=== PATIENT | female | born 2000 | race Caucasian/White ===

== ENCOUNTER 2019-08-10 17:24 | Emergency (ER) | payer OTHER ==
[2019-08-10 17:46] LABS: Rapid Strep Molecular Negative (Negative)
[2019-08-10] MEDS ORDERED: Dexamethasone TAB* 4 MG PO ONE (20:06)
[2019-08-10] MEDS ORDERED: Lidocaine 2% VISCOUS* 15 ML UDC PO ONE (20:07)
[2019-08-10] MEDS ORDERED: Al Hydrox/Mg Hydrox/Simet LIQ* 30 ML UDC PO ONE (20:07)
--- NOTE | 2019-08-10 20:26 | ED ---
Throat Pain/Nasal Congestion - HPI Summary HPI Summary: 19-year-old female presents with sore throat for the past 3 days. States that her throat feels very swollen and it makes her feel short of breath at times. She admits to postnasal drip. No fevers. She admits to acid reflux. No abdominal pain. No nausea or vomiting. Does have a history of strep but no history mono. Denies any fatigue. Has no medical conditions. Is able to swallow. - History of Current Complaint Chief Complaint: EDThroatPain Time Seen by Provider: 08/10/19 19:48 - Allergies/Home Medications Allergies/Adverse Reactions: Allergies Allergy/AdvReac Type Severity Reaction Status Date / Time aspirin Allergy Rash Verified 08/10/19 17:28 gluten Allergy GI Upset Verified 08/10/19 17:28 Penicillins Allergy Rash Verified 08/10/19 17:28 PMH/Surg Hx/FS Hx/Imm Hx Endocrine/Hematology History: Denies: Hx Anticoagulant Therapy Respiratory History: Denies: Hx Asthma Infectious Disease History: No Infectious Disease History: Denies: Traveled Outside the [place] in Last 30 Days - Family History Known Family History: Positive: Non-Contributory - Social History Alcohol Use: Occasionally Substance Use Type: Reports: None Smoking Status (MU): Never Smoked Tobacco Review of Systems Negative: Fever Positive: Sore Throat, Nasal Discharge Negative: Chest Pain Positive: Shortness Of Breath. Negative: Cough All Other Systems Reviewed And Are Negative: Yes Physical Exam Triage Information Reviewed: Yes Vital Signs On Initial Exam: Initial Vitals Temp Pulse Resp BP Pulse Ox 96.1 F 89 18 152/98 98 08/10/19 17:26 08/10/19 17:26 08/10/19 17:26 08/10/19 17:26 08/10/19 17:26 Vital Signs Reviewed: Yes Appearance: Positive: Well-Appearing Skin: Positive: Warm, Dry Head/Face: Positive: Normal Head/Face Inspection Eyes: Positive: Normal, EOMI, GABRIEL, Conjunctiva Clear ENT: Positive: Pharyngeal erythema, TMs normal, Uvula midline, Other - soft palate symmetric. Negative: Trismus, Muffled voice Neck: Positive: Supple, Tenderness @ - posterior cervical Respiratory/Lung Sounds: Positive: Clear to Auscultation, Breath Sounds Present Cardiovascular: Positive: Normal, RRR Musculoskeletal: Positive: Normal Neurological: Positive: Normal Psychiatric: Positive: Normal Procedures - Sedation Patient Received Moderate/Deep Sedation with Procedure: No Diagnostics - Vital Signs Vital Signs Temp Pulse Resp BP Pulse Ox 08/10/19 17:26 96.1 F 89 18 152/98 98 - Laboratory Lab Results: Lab Results 08/10/19 08/10/19 Range/Units 17:32 20:12 Monoscreen Pending Group A Strep Rapid Negative (Negative) Lab Statement: Any lab studies that have been ordered have been reviewed, and results considered in the medical decision making process. EENT Course/Dx - Course Course Of Treatment: 19-year-old female presents with sore throat for the past 3 days. States that her throat feels very swollen and it makes her feel short of breath at times. She admits to postnasal drip. No fevers. She admits to acid reflux. No abdominal pain. No nausea or vomiting. Does have a history of strep but no history mono. Denies any fatigue. Has no medical conditions. Is able to swallow. On exam pharynx erythematous. Uvula midline. Soft palate symmetric. Strep is negative. We'll prescribe Decadron Magic mouthwash. Patient understands and agrees with plan. - Differential Diagnoses Differential Diagnoses: Pharyngitis, Tonsilitis, URI/Bronchitis - Diagnoses Provider Diagnoses: Pharyngitis Discharge ED - Sign-Out/Discharge Documenting (check all that apply): Patient Departure - Discharge Plan Condition: Good Disposition: HOME Prescriptions: Dexamethasone TAB* [Decadron TAB*] 4 mg PO DAILY #4 tab Magic Mouth Was-MAL/MAAL/LIDO* 5 ml SWISH SPIT QID #100 ml Patient Education Materials: Pharyngitis (ED) Referrals: [facility] - Tushar GAMBLE [Primary Care Provider] - Additional Instructions: Magic mouthwash 5ml swish and spit can use 4x a day Take steroid once a day for 4 days Take Tylenol or ibuprofen for pain every 6 hours Use saline spray in nose as much as needed for nasal congestion Can gargle salt water Can use cough drops or products such as cloraseptic spray Return to ED if develop any new or worsening symptoms - Billing Disposition and Condition Condition: GOOD Disposition: Home
[2019-08-10 20:58] VITALS: BP 136/79
[2019-08-12 15:29] LABS: EBV Capsid Ag IgG Ab Positive (Negative); EBV Capsid Ag IgM Ab Negative (Negative); Epstein-Barr Nuclear Antigen Positive (Negative)
--- NOTE | 2019-08-13 08:44 | ED ---
Imaging and Labs Follow Up Follow Up Type: Labs/Cultures Labs/Culture Result: Monospot negative. IgG positive, IgM negative. Patient Communication/Plan: Positive IgG and negative IgM suspect prior exposure without acute infection. No change in treatment needed at this time. Provider Diagnoses: Pharyngitis
== END 2019-08-10 20:55 | disposition home or self-care (01) ==
LOC: ED 17:24
DX: J02.9 Acute pharyngitis, unspecified (principal); Z88.6 Allergy status to analgesic agent; Z88.0 Allergy status to penicillin
CPT/HCPCS: 36415; 86308; 86664; 86665; 87651; 99282; A9270-GY; J8540

== ENCOUNTER 2019-08-15 15:38 | Emergency (ER) | payer OTHER ==
[2019-08-15 16:01] VITALS: BP 104/63
--- NOTE | 2019-08-15 16:58 | UC ---
Respiratory Complaint HPI - HPI Summary HPI Summary: PATIENT HAS HAD A SENSATION OF THROAT TIGHTNESS FOR THE PAST WEEK OR SO. MILD COUGH. NO TRUE SORE THROAT. NO FEVER NO NAUSEA/VOMITING. WAS GIVEN 4 MG DEXAMETHASONE ONCE DAILY FOR 4 DAYS WHICH SHE COMPLETED YESTERDAY. STATES IT DID NOT HELP. WENT BACK TO [facility] YESTERDAY AND RECEIVED PRESCRIPTION FOR KEFLEX 500 MG TWICE DAILY FOR 5 DAYS. STATES THAT HER THROAT WILL TIGHTEN UP TO THE POINT WHERE SHE FEELS IT IS HARD TO BREATHE. EATING AND DRINKING WITHOUT DIFFICULTY. ALBUTEROL INHALER NOT HELPING. - History of Current Complaint Chief Complaint: UCRespiratory Stated Complaint: THROAT PAIN Time Seen by Provider: 08/15/19 16:21 Hx Obtained From: Patient Hx Last Menstrual Period: 06/11/19 Onset/Duration: Gradual Onset, Lasting Days, Still Present Timing: Constant Severity Initially: Moderate Severity Currently: Moderate Pain Intensity: 6 Pain Scale Used: 0-10 Numeric Character: Cough: Nonproductive Aggravating Factors: Nothing Alleviating Factors: Nothing Associated Signs And Symptoms: Positive: URI. Negative: Fever, Wheezing, Nasal Congestion - Allergies/Home Medications Allergies/Adverse Reactions: Allergies Allergy/AdvReac Type Severity Reaction Status Date / Time aspirin Allergy Rash Verified 08/15/19 16:01 gluten Allergy GI Upset Verified 08/15/19 16:01 Penicillins Allergy Rash Verified 08/15/19 16:01 Home Medications: Home Medications Cephalexin CAP* [Keflex 500 CAP*] 500 mg PO BID 08/15/19 [History Confirmed 02/26] PMH/Surg Hx/FS Hx/Imm Hx Previously Healthy: Yes Other History Of: Negative For: Anticoagulant Therapy - Surgical History Surgical History: None - Family History Known Family History: Positive: Non-Contributory - Social History Alcohol Use: Occasionally Substance Use Type: None Smoking Status (MU): Never Smoked Tobacco Review of Systems All Other Systems Reviewed And Are Negative: Yes Constitutional: Positive: Negative ENT: Positive: Negative Respiratory: Positive: Shortness Of Breath, Cough Cardiovascular: Positive: Negative Gastrointestinal: Positive: Negative Physical Exam Triage Information Reviewed: Yes Appearance: Well-Appearing, No Pain Distress, Well-Nourished Vital Signs: Initial Vital Signs Temp 97.9 F 08/15/19 15:56 Pulse 67 08/15/19 15:56 Resp 18 11/05/19 15:56 BP 104/63 08/15/19 15:56 Pulse Ox 99 08/15/19 15:56 Vital Signs Reviewed: Yes Eyes: Positive: Conjunctiva Clear ENT: Positive: Hearing grossly normal, Pharynx normal, TMs normal, Uvula midline - NO EDEMA. Negative: Pharyngeal erythema, Tonsillar swelling, Trismus , Muffled voice Neck: Positive: Supple, Nontender, No Lymphadenopathy Respiratory Exam: Normal Cardiovascular Exam: Normal Abdomen Description: Positive: Soft Musculoskeletal: Positive: No Edema Neurological: Positive: Alert Psychological: Positive: Age Appropriate Behavior Skin: Negative: Rashes Diagnostics - Radiology CXR Radiology Interpretation Completed By: Radiologist Summary of Radiographic Findings: NO ACUTE CARDIOPULMONARY PROCESS BY RADIOGRAPH. Re-Evaluation - Re-Evaluation First Eval Re-Evaluation Time: 17:40 - NO CHANGE IN SX AFTER ALBUTEROL NEB Change: Unchanged Respiratory Course/Dx - Course Course Of Treatment: PATIENT STATES THAT HER THROAT FEELS TIGHT EVEN SHE IS SITTING IN THE ENCOUNTER HOWEVER SHE APPEARS TO BE BREATHING EASILY AND SPEAKING IN FULL SENTENCES. EXAN UNREMARKABLE. O2 SAT 99%. NORMAL LUNG SOUNDS. STREP NEGATIVE. CXR UNREMARKABLE. NO CHANGE AFTER ALBUTEROL NEB. ADVISED SHE LIKELY HAS A VIRAL INFECTION WITH SOME UNDERLYING ANXIETY THAT SHOULD IMPROVE WITH TIME, HOWEVER ADVISED TO GO TO THE ED WITHOUT FAIL IF HER SX WORSEN OR DO NOT IMPROVE. - Differential Dx/Diagnosis Provider Diagnosis: Upper respiratory infection Discharge ED - Sign-Out/Discharge Documenting (check all that apply): Patient Departure All imaging exams completed and their final reports reviewed: Yes - Discharge Plan Condition: Stable Disposition: HOME Prescriptions: predniSONE TAB* [Deltasone TAB*] 50 mg PO DAILY #4 tab Patient Education Materials: Upper Respiratory Infection (ED) Referrals: [facility] [Provider Group] - If Needed Additional Instructions: UNCLEAR ETIOLOGY OF YOUR SYMPTOMS TODAY. STREP TEST NEGATIVE. CHEST X-RAY UNREMARKABLE. OXYGEN SATURATION NORMAL. YOUR PHYSICAL EXAM IS REASSURING WELL. I RECOMMEND YOU TAKE ALBUTEROL MORNING AND NIGHT SCHEDULED AND DURING THE DAY NEEDED. TAKE IBUPROFEN 600 MG EVERY 6 HOURS NEEDED. WILL TRY ANOTHER SHORT BURST OF STEROIDS. YOU MAY CONTINUE THE KEFLEX PRESCRIBED BY [facility]. GO TO THE ER WITHOUT FAIL IF YOUR SYMPTOMS WORSEN OR DO NOT IMPROVE. - Billing Disposition and Condition Condition: STABLE Disposition: Home
[2019-08-15] MEDS ORDERED: Albuterol 2.5 MG/3 ML NEB.SOL* (0.083%) INH ONE (17:19)
== END 2019-08-15 18:00 | disposition home or self-care (01) ==
LOC: UCEAST 15:38
DX: J06.9 Acute upper respiratory infection, unspecified (principal); Z88.6 Allergy status to analgesic agent; Z91.018 Allergy to other foods; Z88.0 Allergy status to penicillin
CPT/HCPCS: 71046; 87651; 99212; G0463

== ENCOUNTER 2019-08-17 18:36 | Emergency (ER) | payer OTHER ==
[2019-08-17 19:18] VITALS: BP 126/77
--- NOTE | 2019-08-17 20:13 | UC ---
Respiratory Complaint HPI - HPI Summary HPI Summary: Patient is a 19yo female presenting with mother for chest tightness, heart racing, SOB, and feeling faint that happened 1 hour before arriving and last several minutes before symptoms improved. Patient states chest tightness and feeling of needing to take deep breaths has been constant with "random worsening episodes throughout the day" for the past week or so. Patient was seen at [facility], who told her that they were sure what was wrong, but gave her azithromycin and prednisone prescription. Patient states this was after she was given dexmathsone x4 days in the ED. Patient states no treatment has helped and her throat and chest feel tight and it is difficult to breathe. She admits to eat and drinking normally. Also notes swollen, tender cervical nodes when seen on Wednesday at [facility]. Denies URI symptoms. Denies fatigue. Denies history of anxiety. Admits h/o exercise-induced asthma. States inhaler is not helping. Patient seen 3 times within last 8 days for same symptoms. Negative strep test x3. Negative mono. Unremarkable CXR. - History of Current Complaint Chief Complaint: UCGeneralIllness Stated Complaint: CHEST CONGESTION Hx Obtained From: Patient, Family/Frame Straightener Hx Last Menstrual Period: 06/11/19 Severity Currently: Moderate Pain Intensity: 6 Pain Scale Used: 0-10 Numeric - Allergies/Home Medications Allergies/Adverse Reactions: Allergies Allergy/AdvReac Type Severity Reaction Status Date / Time aspirin Allergy Rash Verified 08/17/19 19:18 gluten Allergy GI Upset Verified 08/17/19 19:18 Penicillins Allergy Rash Verified 08/17/19 19:18 Home Medications: Home Medications Albuterol HFA INHALER* [Ventolin HFA Inhaler*] 2 puff INH Q6HR 08/17/19 [ History Confirmed 08/17/19] PMH/Surg Hx/FS Hx/Imm Hx GI/ History: Gastroesophageal Reflux, Other - Celiac Other History Of: Negative For: Anticoagulant Therapy - Surgical History Surgical History: None - Family History Known Family History: Positive: Non-Contributory - Social History Occupation: Student - [employer] Lives: Dormitory/Roommates Alcohol Use: Occasionally Substance Use Type: None Smoking Status (MU): Never Smoked Tobacco Review of Systems All Other Systems Reviewed And Are Negative: Yes Constitutional: Positive: Negative. Negative: Fever, Chills, Fatigue ENT: Positive: Other - swollen sensation of throat. Negative: Sore Throat Respiratory: Positive: Shortness Of Breath, Other - feeling of chest tightness. Negative: Cough Cardiovascular: Positive: Negative Gastrointestinal: Positive: Negative Musculoskeletal: Positive: Negative. Negative: Myalgia Neurological: Positive: Headache Psychological: Negative: Anxious Physical Exam Triage Information Reviewed: Yes Appearance: Well-Appearing, No Pain Distress, Well-Nourished Vital Signs: Initial Vital Signs Temp 97.7 F 08/17/19 19:10 Pulse 73 08/17/19 19:10 Resp 16 08/17/19 19:10 BP 126/77 08/17/19 19:10 Pulse Ox 99 08/17/19 19:10 Vital Signs Reviewed: Yes Eyes: Positive: Conjunctiva Clear ENT: Positive: Normal ENT inspection, Hearing grossly normal, Pharynx normal - no edema, TMs normal, Uvula midline. Negative: Nasal congestion, Tonsillar swelling, Trismus, Muffled voice, Hoarse voice Neck exam: Normal Neck: Positive: Supple, Nontender, No Lymphadenopathy Respiratory Exam: Normal Respiratory: Positive: Lungs clear, Normal breath sounds, No respiratory distress. Negative: Stridor, Wheezing Cardiovascular Exam: Normal Cardiovascular: Positive: RRR Neurological: Positive: Alert Psychological: Positive: Age Appropriate Behavior Skin Exam: Normal Respiratory Course/Dx - Course Course Of Treatment: It was discussed with patient and patient's mother that anxiety, GERD, lack of proper sleep, and treatment with numerous medications are all possible causes of symptoms. Patient in no apparent respiratory or pain distress. VS normal with O2 sat 99. Patient speaking normally and in full sentences without appearing short of breath. Patient was instructed to discontinue all medications prescribed to her. May continue use of albuterol inhaler as needed. Patient also instructed to follow up with ENT if symptoms persist for further evaluation of symptoms including direct visualization of throat. Instructed to go to ED if symptoms worsen. Patient and patient's mother voiced understanding and agreed with the treatment plan. Patient also examined by Dr. Martinez who agreed with treatment plan. - Differential Dx/Diagnosis Provider Diagnosis: Feeling of chest tightness, Throat tightness Discharge ED - Sign-Out/Discharge Documenting (check all that apply): Patient Departure All imaging exams completed and their final reports reviewed: No Studies - Discharge Plan Condition: Stable Disposition: HOME Patient Education Materials: Shortness of Breath (ED) Referrals: Ruparelia,Lan, MD [Medical Doctor] - Additional Instructions: As we reviewed tonight: The testing which you have had done has not given a diagnosis. At this time, it is likely that poor sleep and possibly the medications are causing some of the symptoms. Please stop the use of prednisone, ibuprofen and cephalexin. It is possible that the combination has been giving some acid reflux which is compounding the symptoms, and the prednisone could be causing some of the sleep disruption. You can continue your conservative use of albuterol. Gradually increasing exercise might be helpful but avoid running and lifting; brisk walking or cycling would be better starting points. If the throat irritation is persistent, I suggest an ENT evaluation for a look at your throat. You would likely choose to do this in the [facility], but Dr. Warren is an excellent local choice. - Billing Disposition and Condition Condition: STABLE Disposition: Home
== END 2019-08-17 21:17 | disposition home or self-care (01) ==
LOC: UCEAST 18:36
DX: R09.89 Other specified symptoms and signs involving the circulatory and respiratory systems (principal); R06.02 Shortness of breath; Z88.6 Allergy status to analgesic agent; Z91.018 Allergy to other foods; Z88.0 Allergy status to penicillin
CPT/HCPCS: 99211; G0463